=== PATIENT | male | born 1985 | race Caucasian/White ===

== ENCOUNTER 2022-06-30 21:26 | Observation (INO) | payer OTHER, SELFPAY ==
[2022-06-30] VITALS (49 sets, daily range): BP systolic 108–157; BP diastolic 49–109; PULSE 71–97; RESP 0–21; TEMP 37.7; O2SAT 96–100
--- NOTE | 2022-06-30 21:15 | RT.EKG_ITS ---
APPROVED REPORT Exam: Resting ECG Reason for Exam: Shortness of breath Patient Location: E HR:85 bpm ECG Measurements Heart Rate 85 AXIS MS 152 P 70 QRSd 82 QRS 53 QT 358 T 30 QTc 427 Conclusion Sinus rhythm...normal P axis, V-rate 60- 99 Ventricular premature complex...V complex w/ short R-R interval Narrow complex normal sinus rhythm at a rate of 85. Normal axis. Intervals within normal limits. N o ST segment abnormalities. T wave flattening in lead III. No acute injury pattern. No prior for c omparison.
--- NOTE | 2022-06-30 21:30 | ED.GENADUL_ITS ---
Discharge Plan Discharge Details Chief Complaint: Epigastric Pain/Over45 Primary Care Provider: Yancy,Local ED Provider: Forest Vann Home Meds and New Rx's Prescriptions: No Action lorazepam [Ativan] 0.5 mg Tablet 0.5 mg dextroamphetamine-amphetamine [Adderall] 20 mg Tablet 20 mg PO BID Rx Instructions: administer doses at least 4-6 hours apart amitriptyline 50 mg Tablet 50 mg PO QHS Medical Decision Making This is an uncomfortable appearing normothermic and not tachycardic 36-year-old male with chest and abdominal pain concerning for the possibility of dissection. His ECG is nonischemic however based on his symptoms we will obtain a single troponin and if this is negative will be reassured against ACS given the duration of his symptoms. I considered PE however he is PERC negative. No rash to his abdomen to suggest zoster. Splenic arterial aneurysm certainly on the differential given his left upper quadrant pain. No significant diarrhea to suggest diverticulitis. No cough nor fevers to suggest pneumonia. No dysuria nor frequency to suggest UTI. Given his epigastric tenderness pancreatitis is also a possibility. If his scan is reassuring against dissection will plan on attempting symptomatic treatment with famotidine and Mylanta. Given CT scan chest abdomen pelvis will defer chest x-ray. 10 PM CBC is significant for leukocytosis but no anemia and no thrombocytopenia. 10:23 PM Reassuring troponin. Reassuring creatinine. Very mild hyponatremia. Very mild hyperglycemia. No anion gap to suggest DKA. Normal LFTs. CT scan shows acute appendicitis for which I spoke with Dr. Cadena. We will keep patient n.p.o. I have ordered piperacillin/tazobactam. Dr. Cadena will place orders for hospitalization prior to appendectomy plan for tomorrow morning. We will update the patient. I ordered a preprocedural COVID swab. I ordered the patient hydromorphone at 0.5 mg. HEART SCORE Chest pain Diagnostic Protocol: - [History/Physical/Gestalt: Moderately Suspicious (+1)] - [EKG: Normal and/or unchanged from prior EKG (0)] - [AGE: less than 45 (0)] - [RISK FACTORS: No known risk factors (0)] - [TROPONIN: <= normal limit (0)] - TOTAL SCORE: 1 - Risk Factors: DM, current or recent smoker, HTN, HLD, family hx of CAD, obesity - INTERPRETATION: With a total score of 3 or less, risk of major cardiac event within six weeks 1.7%, likely lower with two negative troponins. [I explained to the patient that the risk of subsequent major cardiac event within 1 month is not 0, however risk predicted to be less than 2%. Patient verbalized understanding, accepts this risk and shared and the decision for discharge with PCP follow-up for further evaluation and management. They understand to return to the ED immediately with any worsening symptoms, new symptoms or other concerns.] Chronic conditions affecting the care of the patient: Elevated BMI History obtained from an outside historian: N/A External record review: N/A Diagnostic interpretations performed by me: [Per my independent interpretation EKG shows:] Narrow complex normal sinus rhythm at a rate of 85. Normal axis. Intervals within normal limits. No ST segment abnormalities. T wave flattening in lead III. No acute injury pattern. No prior for comparison. Medications: IV acetaminophen Social determinants of health affecting disposition: N/A Management discussed with: General surgery Treatment/interventions considered: N/A Response to therapies provided: Pain improved with acetaminophen HPI General Date/Time Provider Initiated Documentation: 06/30/22 21:27 . HPI Narrative: This is a previously healthy 36-year-old male arriving to the emergency department in the setting of left upper quadrant and left lower chest pain for the past approximately 8 hours. Patient reports that his symptoms began after blowing up an inflatable Easter toy. He attempted treatment at home with two 0.5 mg lorazepam tablets. These did not improve his symptoms. He vomited twice earlier this evening. He describes his left upper quadrant pain as a squeezing pain. It radiates superiorly into his chest and inferiorly to the remainder of his stomach. He has never had similar symptoms in the past. He has not had diarrhea. He occasionally smokes tobacco but denies routine ethanol and illicits. There is no family history of premature coronary artery disease. Patient does not have any fevers. He denies personal history of hyperlipidemia hypertension and diabetes. Related Data Home Medications Medication Instructions Recorded Confirmed amitriptyline 50 mg tablet 50 mg PO QHS 06/30/22 06/30/22 dextroamphetamine-amphetamine 20 20 mg PO BID 06/30/22 06/30/22 mg tablet (Adderall) lorazepam 0.5 mg tablet (Ativan) 0.5 mg 06/30/22 Allergies Allergy/AdvReac Type Severity Reaction Status Date / Time bee venom protein (honey bee) Allergy Mild Swelling/Ed Unverified 06/30/22 21:37 tracey PFSH All Active Problems (Updated 06/30/22 @ 22:51 by Leny Cadena DO) Insomnia (Acute) ADHD (Acute) Smoker (Acute) Acute appendicitis (Acute) Social History Smoking/Tobacco Use Status: Current-Occasional Smoking risk assessment performed?: Yes Alcohol Intake: never Drug use: Never Substance use type: does not use Exam Narrative Exam Narrative: General: Uncomfortable-appearing in no acute distress speaking in complete sentences. Head: Normocephalic, atraumatic. Eye: Pupils equal, round reactive to light. Extraocular eye movements intact. No conjunctival injection. No scleral icterus. Ear, nose, mouth, throat: Grossly normal inspection. Normal voice, handling secretions normally. Neck: Trachea midline. Cardiovascular: Well-perfused distal extremities. Respiratory: Nonlabored respiration. clear lungs bilaterally Gastrointestinal: Nondistended abdomen. Epigastric and left upper quadrant tenderness. No rebound. No guarding. Musculoskeletal: No edema. Moving all 4 extremities spontaneously. Skin: Normal for age and race, grossly normal temperature and turgor. No acute rash. Neurologic: Alert and appropriate, no apparent acute deficits. Psychiatric: Mood and manner are appropriate. Grooming and personal hygiene are appropriate.
--- NOTE | 2022-06-30 21:45 | DI.CT_ITS ---
Exam(s) CT CHEST/ABD/PEL W EXAM: CT CHEST/ABD/PEL W CLINICAL HISTORY: Chest and abdominal pain please assess for dissect. TECHNIQUE: Imaging Protocol: Axial CT angiography was performed with multi-slice acquisition and m ulti-planar and/or 3D reconstructions. CONTRAST MATERIAL: Intravenous: Omnipaque 350 contrast volume:125 mL Oral: No COMPARISON: No exams were available for comparison FINDINGS: CHEST: Tracheobronchial tree: Patent where visualized. Pulmonary parenchyma: No consolidation or dominant measurable mass. No architectural distortion. Pulmonary Arteries: No evidence of filling defect to suggest pulmonary emboli. Mediastinum and Angelita: No dominant adenopathy or fluid collection. The esophagus is unremarkable. Visualized thyroid: Unremarkable. Pleura: No effusion or pneumothorax. Heart: The heart is not dilated. No coronary artery calcifications are seen. No pericardial effusion. Aorta: Thoracic aorta non-dilated. There is no evidence of dissection. Soft Tissues: Unremarkable. Bones: Within normal limits for the patient's age. ABDOMEN AND PELVIS: Abdomen: Celiac axis/mesenteric arteries: No evidence of occlusion or significant stenosis. Renal Arteries: No evidence of occlusion or significant stenosis. There is a single renal artery per fusing each kidney. Aorta: No evidence of occlusion or significant stenosis. No aneurysm or dissection. Pelvis: Iliac Arteries: No evidence of occlusion or significant stenosis. Common Femoral Arteries: No evidence of occlusion or significant stenosis. ABDOMEN: Liver: Normal density. No measurable mass. Gallbladder and Biliary Tract: No radiodense calculus or dilation. Pancreas: Normal density, no abnormal calcifications or inflammatory process. Spleen: Normal. Adrenals: No masses seen. Kidneys: Normal size, contour and axis. No radiodense stones or obstructive uropathy. No masses seen. Bowel: No obstruction or bowel wall thickening. The appendix is distended measuring 1.8 cm in diamete r. There is Liseth appendiceal inflammation and mild wall thickening present. There does appear to be a tiny calcified appendicoliths.. No abscess or free air is present. Peritoneal Cavity: No ascites, collection or mesenteric inflammatory response. No free air. Lymph Nodes: Within normal limits. Bones: Within normal limits for the patient's age. Soft Tissues: Unremarkable. PELVIS: Bladder: Symmetric distention, no gross wall thickening. Reproductive Organs: Unremarkable as visualized. Lymph Nodes: Within normal limits. Bones: Within normal limits for the patient's age. IMPRESSION: 1. Normal CT Angiogram of the chest, abdomen and pelvis. 2. Findings of acute appendicitis without evidence of perforation or abscess. RADIATION DOSE DELIVERED: 1,416.97mGy.cm Total DLP DATA REPOSITORY: All CT scans at this facility are submitted to the National Radiology Data Registry (NRDR) Dose Index Registry (DIR) with the [employer] (A[employer]). RADIATION OPTIMIZATION: All CT scans at this facility use at least one of these dose optimization te chniques: automated exposure control; mA and/or kV adjustment per patient size (includes targeted exa ms where dose is matched to clinical indication); or iterative reconstruction.
[2022-06-30] MEDS: ACETAMINOPHEN 1,000 MG/100 ML BTL 400 MG IVPB (21:54)
[2022-06-30 21:55] LABS: Abs Immature Grans 0.18 10^3/uL (0.0-0.06); Absolute Eosinophil Count 0.06 10^3/uL (0.0-0.7); Basophils % 0.4; Eosinophils % 0.2; HCT 47.2 % (40.0-50.0); HGB 16.5 g/dL (13.5-17.5); Immature Grans % 0.6; Lymphocytes % 7.7; MCH 29.4 pg (27.0-33.0); MCV 84 fL (80-95); Monocytes % 3.2; Neutrophils % 87.9; Platelet Count 263 10^3/uL (130-400); RBC 5.62 10^6/uL (4.36-5.78); RDW 12.8 % (11.8-14.1); RDW-SD 39.2 fL
[2022-06-30] MEDS: Normal Saline 1,000 ML 1000 ML IV (21:55)
[2022-06-30 21:59] LABS: Absolute Basophil Count 0.12 10^3/uL (0.0-0.2); Absolute Lymphocyte Count 2.35 10^3/uL (1.2-3.4); Absolute Monocyte Count 0.98 10^3/uL (0.1-0.8); Absolute Neutrophil Count 26.81 10^3/uL (1.2-6.7)
[2022-06-30 22:01] LABS: Lactate 1.6 MMOL/l (0.9-1.7)
[2022-06-30] MEDS: Normal Saline - Diluent 50 ML VIAL IJ (22:06)
[2022-06-30] MEDS: Omnipaque 350 MG/ML 100 ML BTL IJ (22:06)
[2022-06-30 22:15] LABS: ALT 41 U/L (16-63); AST 18 U/L (15-37); Albumin 4.3 g/dL (3.4-5.0); Alkaline Phosphatase 125 U/L (46-116); Anion Gap 8.4 mmol/L (3-11); BUN 12 mg/dL (7-18); Bilirubin, Total 0.4 mg/dL (0.2-1.0); CO2 29.6 mmol/L (21.0-32.0); CREATININE 1.1 mg/dL (0.70-1.30); Calcium 9.8 mg/dL (8.5-10.1); Chloride 97 mmol/L (98-107); Estimated GFR 90.34 (mL/min/1.73m2); Glucose 112 mg/dL (74-106); Lipase 40 U/L (16-77); Potassium 4.2 mmol/L (3.5-5.1); Sodium 135 mmol/L (136-145); Total Protein 8.8 g/dL (6.4-8.2); Troponin I < 50 ng/L (<or=60)
--- NOTE | 2022-06-30 22:26 | DI.VRAD_ITS ---
Addendum created by Elena Carter MD on 06/30/2022 10:28:47 PM EDT: THIS REPORT CONTAINS FINDINGS THAT MAY BE CRITICAL TO PATIENT CARE. The pertinent findings were confirmed to have been read and understood by Forest Vann at 22:28 EDT on 06/30/2022. Initial report created on 06/30/2022 10:26:19 PM EDT: PROCEDURE INFORMATION: Exam: CTA Chest With Contrast CTA Abdomen and Pelvis With Contrast Exam date and time: 06/30/2022 21:56 Age: 36 years old Clinical indication: Other: Not specified; Patient HX: Chest and abdominal pain; Additional info: Please assess for dissection TECHNIQUE: Imaging protocol: Computed tomographic angiography of the chest with contrast. Computed tomographic angiography of the abdomen and pelvis with contrast. 3D rendering (Not supervised by radiologist): MIP and/or 3D reconstructed images were created by the technologist. COMPARISON: No relevant prior studies available. FINDINGS: VASCULATURE: Pulmonary arteries: No pulmonary emboli. Aorta: No aortic aneurysm. No aortic dissection. Celiac trunk and mesenteric arteries: No occlusion or significant stenosis. Renal arteries: No occlusion or significant stenosis. Right iliac arteries: No occlusion or significant stenosis. Left iliac arteries: No occlusion or significant stenosis. CHEST: Lungs: No airspace consolidation. Pleural spaces: No pneumothorax. No pleural effusion. Heart: No cardiomegaly. No pericardial effusion. ABDOMEN AND PELVIS: Liver: No hypervascular hepatic lesions. Gallbladder and bile ducts: No calcified stones. No ductal dilation. Pancreas: No mass. No ductal dilation. Spleen: No splenomegaly. Adrenal glands: No mass. Kidneys and ureters: No solid mass. No hydronephrosis. Stomach and bowel: No obstruction. No mucosal thickening. Appendix: The appendix is dilated to 19 mm in diameter and contains a small not highly calcified stone. Mild wall thickening and surrounding edema. Intraperitoneal space: No free air. No significant fluid collection. Urinary bladder: No mass. Reproductive: Unremarkable as visualized. Lymph nodes: No enlarged lymph nodes. Bones/joints: No acute fracture. Soft tissues: Unremarkable. IMPRESSION: Acute appendicitis. No perforation or abscess. No acute arterial pathology. Dictated and Authenticated by: Elena Carter MD. Ordering:ROSSY Garg MD
[2022-06-30] MEDS: PIPERACILLIN/TAZO 3.375 GM in Normal Saline 50 ML IVPB (22:45)
--- NOTE | 2022-06-30 22:47 | W.PM.PROGNOT ---
Date of Service Date of service: 06/30/22 Time of Service: 22:47 Assessment and Plan Assessment and plan (1) Acute appendicitis: Status: Acute Assessment and plan: Informed consent is obtained for the procedural (explained in simple layman's terms that? the pt and/or? family could understand) explaining risks vs benefits and alternatives to the procedure and consequences if we do not do the procedure. Risks include but are not limited to:bleeding,infections, pneumonia, blood clots/DVT/PE, anesthesia(aspiration, damage to teeth/airway/TX/CVA//prolonged mechanical ventilation/PTX/IV infections), damage to bowel, bladder,blood vessels, ureters. Damage to solid organs requiring removal.? Leakage from anastomosis requiring colostomy/? Wound infections requirng further surgery.? Scarring and disfigurement.? Subsequent bowel obstructions from scar tissue. Possible open procedure if minimaly invsive procedure is being attempted.?? Surgery in am (2) Smoker: Status: Acute (3) ADHD: Status: Acute (4) Insomnia: Status: Acute (5) Anxiety: Status: Chronic Subjective Subjective Interval history since last seen: acute appendicitis per ER. Pt is non toxic and comfortable. Cont abx and supportive care through night and plan surgery in am occ smoker anxiety bmi [address]: ABDOMEN AND PELVIS: Liver: No hypervascular hepatic lesions. Gallbladder and bile ducts: No calcified stones. No ductal dilation. Pancreas: No mass. No ductal dilation. Spleen: No splenomegaly. Adrenal glands: No mass. Kidneys and ureters: No solid mass. No hydronephrosis. Stomach and bowel: No obstruction. No mucosal thickening. Appendix: The appendix is dilated to 19 mm in diameter and contains a small not highly calcified stone. Mild wall thickening and surrounding edema. Intraperitoneal space: No free air. No significant fluid collection. Urinary bladder: No mass. Reproductive: Unremarkable as visualized. Lymph nodes: No enlarged lymph nodes. Bones/joints: No acute fracture. Soft tissues: Unremarkable. IMPRESSION: Acute appendicitis. No perforation or abscess. No acute arterial pathology. Objective Last Vital Signs Temp 37.7 C H 06/30/22 21:30 Pulse 72 06/30/22 21:30 Resp 16 06/30/22 21:30 BP 157/109 H 06/30/22 21:30 Pulse Ox 100 06/30/22 21:30 Laboratory Results - last 24 hr 06/30/22 06/30/22 06/30/22 21:43 21:43 21:43 WBC 30.50 H* RBC 5.62 Hgb 16.5 Hct 47.2 MCV 84 MCH 29.4 MCHC 35.0 RDW 12.8 Plt Count 263 MPV 10.0 Immature Gran % 0.6 Neutrophils % 87.9 Lymphocytes % 7.7 Monocytes % 3.2 Eosinophils % 0.2 Basophils % 0.4 Nucleated RBC % 0.0 Absolute Neutrophils 26.81 H Absolute Lymphocytes 2.35 Absolute Monocytes 0.98 H Absolute Eosinophils 0.06 Absolute Basophils 0.12 VBG Lactate 1.6 Sodium 135 L Potassium 4.2 Chloride 97 L Carbon Dioxide 29.6 Anion Gap 8.4 BUN 12 Creatinine 1.1 Est GFR (CKD-EPI 2020) 90.34 Glucose 112 H Calcium 9.8 Total Bilirubin 0.4 AST 18 ALT 41 Alkaline Phosphatase 125 H Troponin I < 50 Total Protein 8.8 H Albumin 4.3 Lipase 40 Time Spent with Patient Time Spent with Patient: 25-34 minutes Time was spent: obtaining and/or reviewing separately otained hiistory, ordering medications,tests, procedures, referring, communicating with other health director of managed care, indepentently interpreting results and care coordination
[2022-06-30 22:59] LABS: Source Nasal/Nares
[2022-06-30] MEDS: HYDROmorphone 2 MG/ML SYR 0.5 MG IVP (23:15)
[2022-06-30] MEDS: Enoxaparin 40 MG/0.4 ML SYR SC (23:15)
[2022-06-30 23:36] LABS: COVID-19 PCR Negative (Negative)
[2022-07-01] VITALS (8 sets, daily range): BP systolic 101–146; BP diastolic 71–88; PULSE 77–95; RESP 16–20; TEMP 36.7–37.4; O2SAT 92–100; BMI 33.5
[2022-07-01] MEDS: Normal Saline 1,000 ML 100 ML IV (00:03)
[2022-07-01] MEDS: MORPHine 2 MG/ML SYR IVP (03:43)
[2022-07-01] MEDS: ACETAMINOPHEN 1,000 MG/100 ML BTL 400 MG IVPB (04:17)
[2022-07-01] MEDS: PIPERACILLIN/TAZO 3.375 GM in Normal Saline 50 ML IVPB ×2 (04:25→10:02)
--- NOTE | 2022-07-01 08:35 | ANES.PREOP_ITS ---
General Info Date of Service Date Performed: 07/01/22 Height: 5 ft 10 in Weight: 105.914 kg Body Mass Index (BMI): 33.5 Surgical Procedure: Operation Date: 07/01/22 09:00 Proposed Procedure Side Surgeon p Appendectomy Laparoscopic Leny Cadena DO Meds Allergies and Home Medications Allergies Allergy/AdvReac Type Severity Reaction Status Date / Time bee venom protein (honey bee) Allergy Mild Swelling/Ed Unverified 06/30/22 21:37 tracey Home Medication Medication Instructions Recorded amitriptyline 50 mg tablet 50 mg PO QHS 06/30/22 dextroamphetamine-amphetamine 20 20 mg PO BID 06/30/22 mg tablet (Adderall) lorazepam 0.5 mg tablet (Ativan) 0.5 mg 06/30/22 Current Visit Medications: Current Medications Generic Name Dose Route Start Last Admin Trade Name Freq PRN Reason Stop Dose Admin Enoxaparin Sodium 40 mg 07/01/22 22:00 Enoxaparin 40 Mg/0.4 Ml Syr SC Q24H HEDY Sodium Chloride 500 mls @ 0 mls/hr 06/30/22 22:40 Saline 500ml Bag IV PRN PRN As Directed Sodium Chloride 1,000 mls @ 100 mls/hr 06/30/22 22:45 07/01/22 00:03 Saline 1000ml Bag IV 100 mls/hr INFUSION HEDY Administration Acetaminophen 1,000 mg in 100 mls @ 400 mls/hr 07/01/22 04:00 07/01/22 04:35 Ofirmev IVPB Infused Q6H HEDY Infusion Piperacillin Sod/Tazobactam 50 mls @ 100 mls/hr 07/01/22 04:00 07/01/22 05:00 Sod 3.375 gm/ Sodium Chloride IVPB Infused Q6H HEDY Infusion Protocol IV Miscellaneous Supplies 1 each 06/30/22 22:45 Iv Access IV DIRECTED HEDY Lidocaine 1 patch 07/01/22 22:00 Lidocaine 5% Patch TP 2200 HEDY Miscellaneous 1 each 07/01/22 10:00 Patch Removal TP 1000 HEDY Morphine Sulfate 2 mg 06/30/22 22:40 07/01/22 03:43 Morphine 2 Mg/Ml Syr IVP 2 mg Q1H PRN PRN Administration Ondansetron HCl 4 mg 06/30/22 22:40 Ondansetron 4 Mg/2 Ml Vial IVP Q4H PRN PRN Sodium Chloride 0 ml 06/30/22 22:40 Normal Saline Flush 10 Ml Syr IVP PRN PRN PFSH Active Problems Active Problems: Problem Status Onset Code Anxiety F41.9 Insomnia G47.00 ADHD F90.9 Smoker F17.200 Acute appendicitis K35.80 Tobacco Smoking/Tobacco Use Status: Current-Occasional Alcohol Alcohol Intake: never Substance Use Substance use: Never Substance use type: does not use Vital Signs and Lab Results Vital Signs Most Recent Vital Signs in EMR: Most Recent Vital Signs Temp Pulse Resp BP Pulse Ox 36.8 C 77 17 129/78 100 07/01/22 07:43 07/01/22 07:43 07/01/22 07:43 07/01/22 07:43 07/01/22 07:43 Lab Results 06/30/22 21:43 06/30/22 21:43 Blood Type / Crossmatch: No Data to Display Complete Blood Count: White Blood Count 30.50 10^3/uL (4.4-10.8) H* 06/30/22 21:43 Red Blood Count 5.62 10^6/uL (4.36-5.78) 06/30/22 21:43 Hemoglobin 16.5 g/dL (13.5-17.5) 06/30/22 21:43 Hematocrit 47.2 % (40.0-50.0) 06/30/22 21:43 Platelet Count 263 10^3/uL (130-400) 06/30/22 21:43 Venous Blood Lactate 1.6 MMOL/l (0.9-1.7) 06/30/22 21:43 Complete Metabolic Panel: Sodium 135 mmol/L (136-145) L 06/30/22 21:43 Potassium 4.2 mmol/L (3.5-5.1) 06/30/22 21:43 Chloride 97 mmol/L (98-107) L 06/30/22 21:43 Carbon Dioxide 29.6 mmol/L (21.0-32.0) 06/30/22 21:43 BUN 12 mg/dL (7-18) 06/30/22 21:43 Creatinine 1.1 mg/dL (0.70-1.30) 06/30/22 21:43 Est GFR (CKD-EPI 2020) 90.34 (mL/min/1.73m2) 06/30/22 21:43 Calcium 9.8 mg/dL (8.5-10.1) 06/30/22 21:43 Albumin 4.3 g/dL (3.4-5.0) 06/30/22 21:43 Glucose 112 mg/dL (74-106) H 06/30/22 21:43 Liver Function Panel: Alanine Aminotransferase (ALT/SGPT) 41 U/L (16-63) 06/30/22 21: 43 Aspartate Amino Transf (AST/SGOT) 18 U/L (15-37) 06/30/22 21:43 Coagulation Panel: No Data to Display Cardiac Panel: Troponin I < 50 ng/L (<or=60) 06/30/22 Arterial Blood Gas: No Data to Display Venous Blood Gas: No Data to Display Pancreas Panel: Lipase 40 U/L (16-77) 06/30/22 21:43 Thyroid Panel: No Data to Display Infectious Disease: Coronavirus (COVID-19)(PCR) Negative (Negative) 06/30/22 22:51 Coronavirus 2019 Source Nasal/Nares 06/30/22 22:51 Blood Cultures: No Data to Display Toxicology Panel: No Data to Display Imaging and Studies Imaging and Studies Study information below may be from another EMR and interpreted by another provider. Please see original notes in EMR for more complete details. EKG Summary: EKG PATIENT NAME: Gonzales Sanchez #: [id number] ORDERING PROVIDER: Forest Vann M.D. PRIMARY CARE PROVIDER:TWILA LOCAL DATE/TIME OF SERVICE: 06/30/222141 : 1985PERFORMING LOCATION: ER APPROVED REPORT Exam: Resting ECG Reason for Exam: Shortness of breath Patient Location: E HR:85 bpm ECG Measurements Heart Rate [address] 152 P 70 QRSd 82 QRS 53 QT 358 T30 QTc 427 Conclusion Sinus rhythm...normal P axis, V-rate 60- 99 Ventricular premature complex...V complex w/ short R-R interval Narrow complex normal sinus rhythm at a rate of 85. Normal axis. Intervals within normal limits. No ST segment abnormalities. T wave flattening in lead III. No acute injury pattern. No prior for comparison Anesthesia Assessment and Plan Anesthesia History Personal History: No History of Anesthesia Complications Family History: No Family History of Anesthesia Complications Exercise Tolerance Exercise Tolerance: Metabolic Equivalents>4 Pertinent Negatives Pertinent Negatives: No Symptoms of GERD, No Major Cardiovascular Symptoms or Complaints and No History of CVA/TIA Cardiac & Pulmonary Exam Cardiac Exam: Normal S1/S2 Heart Sounds Pulmonary Exam: Clear Bilateral Breath Sounds and Wheezing Present (LLL, cleared with cough) Implantable Cardiac Device Does patient have a Pacemaker or an ICD?: No Airway Exam Known Difficult Airway: No Mallampati Class: 3 Mouth Opening: Normal (> 3cm) Thyromental Distance: Greater than 3 cm Neck Range of Motion: Full ROM Neck Circumference: Normal Teeth Condition: Normal Dentition ASA Classification ASA Score: ASA 2 Emergency Case?: No NPO Status NPO Status: NPO Clears >2 hours, Solids >8 hours Anesthesia Plan Resuscitation Status: Full Code Anesthesia Technique: General Anesthesia Airway Planned: Endotracheal Tube Monitors Used: Standard Monitors
--- NOTE | 2022-07-01 08:40 | HPE_ITS ---
Date of service: 07/01/22 Time of Service: 08:40 Assessment and Plan Assessment and plan (1) Acute appendicitis: Status: Acute Assessment and plan: - I discussed with the patient what he could expect during her surgery, recovery time, and risks. :Informed consent is obtained for the procedural (explained in simple layman's terms that the pt and/or family could understand) explaining risks vs benefits and alternatives to the procedure and consequences if we do not do the procedure. Risks include but are not limited to: bleeding, infections, pneumonia, blood clots/DVT/PE, anesthesia (aspiration, damage to teeth/airway/SD/CVA//prolonged mechanical ventilation/PTX/IV infections), damage to bowel, bladder, blood vessels. Leakage from anastomosis requiring colostomy/ Wound infections requiring further surgery.?Scarring and disfigurement. Subsequent bowel obstructions from scar tissue.? Chronic pain or numbness from the incision, or hernia. Possible open procedure if minimally invasive procedure is being attempted. -Patient has been receiving Zosyn since his admission Surgery this a.m. Hopefully can be discharged home tonight (2) Anxiety: Status: Chronic (3) Insomnia: Status: Acute (4) ADHD: Status: Acute (5) Smoker: Status: Acute History of Present Illness Narrative: Patient feels better today. He has no nausea or vomiting. He has some mild right lower quadrant pain. The nausea and vomiting started yesterday. He was also having chills. He denied any trauma. No one else at home is ill he has not done any traveling. He has never had anything like this before. He was having severe pain in the right lower quadrant and went into the emergency room. He did get a CT scan which showed acute appendicitis. Past surgical history is significant for T&A and a right hernia repair as a child. He does not know if he had problems with anesthesia Past medical history: He denies ever having a heart attack or stroke. He denies being diabetic. He denies asthma or sleep apnea. He does occasionally smoke c igarettes. Allergies and medications as noted in [employer] Review of Systems All systems reviewed & are unremarkable except as noted in HPI and below PFSH All Active Problems Anxiety (Chronic) Insomnia (Acute) ADHD (Acute) Smoker (Acute) Acute appendicitis (Acute) Social History Smoking/Tobacco Use Status: Current-Occasional Smoking risk assessment performed?: Yes Alcohol Intake: never Drug use: Never Substance use type: does not use Meds Allergies and Home Medications Allergies Allergy/AdvReac Type Severity Reaction Status Date / Time bee venom protein (honey bee) Allergy Mild Swelling/Ed Unverified 06/30/22 21:37 tracey Home Medications Medication Instructions Recorded Confirmed Type amitriptyline 50 mg tablet 50 mg PO QHS 06/30/22 06/30/22 History dextroamphetamine-amphetamine 20 20 mg PO BID 06/30/22 06/30/22 History mg tablet (Adderall) lorazepam 0.5 mg tablet (Ativan) 0.5 mg 06/30/22 History Exam Const Other: PHYSICAL EXAM GENERAL APPEARANCE: Alert, healthy appearance, oriented, x 3,? in no acute distress HYDRATION: Well hydrated HEAD, EYES, EARS, NECK, THROAT: Head is normocephalic, pupils equal, round, r eactive to light and accommodation, ocular movement intact, sclera clear and no jaundice. ?Dentition intact. No sore throat.? No jaw pain. No thrush LUNGS: normal respiration/normal chest excursion. ?Clear to auscultation bilaterally. ?No wheeze. ?HEART: Regular rate and rhythm. no murmurs ABDOMEN: Mild pain at McBurney's point. Decreased bowel sounds.? No umbilical hernias.? Results Labs 06/30/22 21:43 06/30/22 21:43 Labs: Laboratory Results - last 24 hr 06/30/22 06/30/22 06/30/22 21:43 21:43 21:43 WBC 30.50 H* RBC 5.62 Hgb 16.5 Hct 47.2 MCV 84 MCH 29.4 MCHC 35.0 RDW 12.8 Plt Count 263 MPV 10.0 Immature Gran % 0.6 Neutrophils % 87.9 Lymphocytes % 7.7 Monocytes % 3.2 Eosinophils % 0.2 Basophils % 0.4 Nucleated RBC % 0.0 Absolute Neutrophils 26.81 H Absolute Lymphocytes 2.35 Absolute Monocytes 0.98 H Absolute Eosinophils 0.06 Absolute Basophils 0.12 VBG Lactate 1.6 Sodium 135 L Potassium 4.2 Chloride 97 L Carbon Dioxide 29.6 Anion Gap 8.4 BUN 12 Creatinine 1.1 Est GFR (CKD-EPI 2020) 90.34 Glucose 112 H Calcium 9.8 Total Bilirubin 0.4 AST 18 ALT 41 Alkaline Phosphatase 125 H Troponin I < 50 Total Protein 8.8 H Albumin 4.3 Lipase 40 COVID-19 Source SARS-CoV-2 (PCR) 06/30/22 22:51 WBC RBC Hgb Hct MCV MCH MCHC RDW Plt Count MPV Immature Gran % Neutrophils % Lymphocytes % Monocytes % Eosinophils % Basophils % Nucleated RBC % Absolute Neutrophils Absolute Lymphocytes Absolute Monocytes Absolute Eosinophils Absolute Basophils VBG Lactate Sodium Potassium Chloride Carbon Dioxide Anion Gap BUN Creatinine Est GFR (CKD-EPI 2020) Glucose Calcium Total Bilirubin AST ALT Alkaline Phosphatase Troponin I Total Protein Albumin Lipase COVID-19 Source Nasal/Nares SARS-CoV-2 (PCR) Negative Last Vital Signs Temp 36.8 C 07/01/22 07:43 Pulse 77 07/01/22 07:43 Resp 17 07/01/22 07:43 BP 129/78 07/01/22 07:43 Pulse Ox 100 07/01/22 07:43 Time Spent Time spent with Patient: 40-54 minutes Time was spent: preparing to see the patient(eg.review tests), obtaining and/or reviewing separately otained hiistory, ordering medications,tests, procedures, referring, communicating with other health customer care coordinator, indepentently interpreting results, counseling the patient and care coordination
[2022-07-01] MEDS: Lactated Ringers 1,000 ML 30 ML IV ×2 (09:10→11:00)
[2022-07-01] MEDS: Bupivacaine 0.25% Pres-Free W/EPI 30 ML VIAL (10:01)
--- NOTE | 2022-07-01 10:15 | APP_PTH ---
PATIENT: Gonzales Sanchez LOC: U#:[id number] AGE/SX: 36/M ROOM: [id number] RE06/30/[address]: Leny Cadena : 1985 BED: A DIS: 07/01/2022 SPEC #: [id number] RECD: 07/02/22 12:30 STATUS: CRYSTAL REQ #: [id number] GEE: 07/01/22 10:[address]: Leny Cadena DEPT: Surgical Specimen RECD BY: Karla Zamora ENTERED: 07/02/22 12:31 SP TYPE: Appendix OTHR DR: No Local Tissues: 1 - APPENDIX NOT INCIDENTAL Procedures: GROSS AND MICRO LEVEL 3 Comments: [id number]
--- NOTE | 2022-07-01 10:58 | ROE_ITS ---
Date of service: 07/01/22 Time of Service: 10:58 Operative Note Operative Note DATE OF PROCEDURE: 07/01/22 PRE-OP DIAGNOSIS: acute appendicitis POST-OP DIAGNOSIS: same PROCEDURE: Laparoscopic appendectomy SURGEON: Ksenia Gómez MESSAGING ARCHITECT: Libby Minor ANESTHESIA TYPE: Local By Surgeon and General LMA/ETT Refer to Anesthesia Record ESTIMATED BLOOD LOSS: 50 PATHOLOGY: other COMPLICATIONS: None Patient was transported to: PACU Patient's condition: stable Procedure Description: INDICATIONS: The patient has signs and symptoms compatible with acute appendicitis and is brought to the OR for laparoscopic appendectomy, possible open procedure. Informed consent is obtained for the procedural (explained in simple layman's terms that the pt and/or family could understand) explaining risks vs benefits and alternatives to the procedure and consequences if we do not do the procedure. Risks include but are not limited to:bleeding,infections, pneumonia, blood clots/DVT/PE, anesthesia(aspiration, damage to teeth/airway/MD/CVA//prolonged mechanical ventilation/PTX/IV infections), damage to bowel, bladder,blood vessels, ureters. Damage to solid organs requiring removal. Infertility. Leakage from anastomosis requiring colostomy. Wound infections requirng further surgery. Scarring and disfigurement. Subsequent bowel obstructions from scar tissue. Possible open procedure if minimaly invsive procedure is being attempted. Abscess and stump appendicitis as well as others. DESCRIPTION OF PROCEDURE: The patient was brought to the operating room suite and placed in supine position. Anesthesia was administered per the Department of Anesthesia. A Anne catheter and OG tube are placed. The patient was prepped and draped in the usual sterile fashion using ChloraPrep scrub solution. Pause for the cause was done. 30 mL of 1% buffered was used for local anesthetization. A stab incision was made in the umbilicus and the Veress was inserted. Drop test was positive and insufflation was begun. When 15 mm of pressure was noted on the monitor, the Veress was removed, a #5 port inserted. Camera inserted through the port shows no damage to underlying structures. Bowel, liver and stomach that are visualized are normal in appearance. Pelvic organs are not visualized. The appendix is inflamed, erythematous,enlarged, & distened, but does not appear to have been ruptured. There is no purulent drainage in the pelvis. It is not adhered to any adjacent structures. A 12 mm port was then placed in the suprapubic position under direct visualization following creation of a local field block as well as a second 5 mm port in the LLQ. The appendix is elevated and a rent dissected into the mesentery. The base of the appendix is healthy and will hold cynthia. A Endo-CRISTIANO stapler is placed across the base of the appendix and fired. A vascular stapler is then used to go across the appendiceal artery. The remainder of a mesentery is then taken down with the LigaSure. There is a another branch of the artery that is encountered. 2 clips were placed across this. There is no bleeding or enteric leakage noted. The appendix is placed in a bag and brought out. There is no bleeding or enteric leakage from the staple lines. The pt does not require a drain. The abdomen was copiously irrigated with a liter of saline. All saline is evacuated. The scope and ports are removed. Pneumoperitoneum is evacuated. The fascia under the 12 mm port is closed with 0 Vicryl. There was no bleeding from the port sites as when they removed and the pneumoperitoneum evacuated. The wounds were copiously irrigated and closed in 2 layers with 4-0 Monocryl.? Skin glue is used.? Sterile dressings are applied. The patient tolerated the procedure without complication, transferred to the recovery room in stable condition. KSENIA GÓMEZ, DO ?
--- NOTE | 2022-07-01 11:18 | W.ANESPOSTOP ---
Postoperative Evaluation Date, Time and Location Date Performed: 07/01/22 Time Performed: 11:18 Patient Location: PACU Vital Signs Most Recent Imported Vital Signs: Most Recent Vital Signs Temp Pulse Resp BP Pulse Ox 36.7 C 81 16 101/73 100 07/01/22 10:57 07/01/22 11:07 07/01/22 11:07 07/01/22 11:07 07/01/22 11:07 Pain Score Most Recent Pain Score: Most Recent Pain Score Pain Level [Lower right 4 07/01/22 07:16 quadrant, appendicitis reported by might RN] Pain Level 2 07/01/22 11:07 Assessment Mental Status: Awake (Alert & Oriented to Patient Baseline) Airway and Respiratory Function: Patent airway with normal (patient baseline) respiratory exam Cardiovascular Function: Hemodynamically Stable Hydration Status: Adequately Hydrated Nausea & Vomiting: No Nausea or Vomiting Pain: Pain is tolerable per patient (reporting 5/10, states is currently tolerable and doesnt want medication at this time. Is inpatient. ) Peripheral Nerve Block: Patient did not receive a nerve block
--- NOTE | 2022-07-01 11:27 | W.PM.PROGNOT ---
Date of Service Date of service: 07/01/22 Time of Service: 11:27 Assessment and Plan Assessment and plan (1) S/P laparoscopic appendectomy: Status: Acute Assessment and plan: - Patient did receive 3 doses of Zosyn Repeat labs in a.m. We will keep patient till a.m. He did have a 30,000 white count Routine postop cares (2) Anxiety: Status: Chronic (3) Insomnia: Status: Acute (4) ADHD: Status: Acute (5) Smoker: Status: Acute (6) Leukocytosis (leucocytosis): Status: Acute Subjective Subjective Interval history since last seen: The patient is doing well post-op. Their pain is well controlled. They are having no nausea or vomiting. The pt is not having any chest pain or SOB, productive cough; no calf pain or swelling. The pt is making good urine. The pt pain is adequately controlled. The case was discussed with nursing and patient?s progress reviewed. All of the pt's home medications were addressed and adjusted accordingly for their oral intact status. HEENT: no jaundice. no eye pain/drainage/redness/swelling. Mild sore throat Cardio- NSR no chest pain, BP stable. Pulm: no sob or productive cough. no hemoptysis Incision- clean/dry. Dressing intact no excessive bleeding or drainage I discussed with the patient about the findings in surgery and the pt's progress. We reviewed expectations for progress in the hospital; what the pt could expect for recovery time and length of stay. We discussed the importance of walking and pulmonary toilet to avoid blood clots and pneumonia. Continue current plans for pulmonary toilet, GI and DVT prophylaxis. We shall continue the current plan for pain management as it is at an appropriate level, and working well for the pt. Appropriate measures will be taken for constipation prevention, and this was also reviewed with the pt. The wound care plan was reviewed with nursing as well. see orders Objective Last Vital Signs Temp 36.7 C 07/01/22 11:12 Pulse 80 07/01/22 11:12 Resp 17 07/01/22 11:12 BP 113/71 07/01/22 11:12 Pulse Ox 98 07/01/22 11:12 Laboratory Results - last 24 hr 06/30/22 06/30/22 06/30/22 21:43 21:43 21:43 WBC 30.50 H* RBC 5.62 Hgb 16.5 Hct 47.2 MCV 84 MCH 29.4 MCHC 35.0 RDW 12.8 Plt Count 263 MPV 10.0 Immature Gran % 0.6 Neutrophils % 87.9 Lymphocytes % 7.7 Monocytes % 3.2 Eosinophils % 0.2 Basophils % 0.4 Nucleated RBC % 0.0 Absolute Neutrophils 26.81 H Absolute Lymphocytes 2.35 Absolute Monocytes 0.98 H Absolute Eosinophils 0.06 Absolute Basophils 0.12 VBG Lactate 1.6 Sodium 135 L Potassium 4.2 Chloride 97 L Carbon Dioxide 29.6 Anion Gap 8.4 BUN 12 Creatinine 1.1 Est GFR (CKD-EPI 2020) 90.34 Glucose 112 H Calcium 9.8 Total Bilirubin 0.4 AST 18 ALT 41 Alkaline Phosphatase 125 H Troponin I < 50 Total Protein 8.8 H Albumin 4.3 Lipase 40 COVID-19 Source SARS-CoV-2 (PCR) 06/30/22 22:51 WBC RBC Hgb Hct MCV MCH MCHC RDW Plt Count MPV Immature Gran % Neutrophils % Lymphocytes % Monocytes % Eosinophils % Basophils % Nucleated RBC % Absolute Neutrophils Absolute Lymphocytes Absolute Monocytes Absolute Eosinophils Absolute Basophils VBG Lactate Sodium Potassium Chloride Carbon Dioxide Anion Gap BUN Creatinine Est GFR (CKD-EPI 2020) Glucose Calcium Total Bilirubin AST ALT Alkaline Phosphatase Troponin I Total Protein Albumin Lipase COVID-19 Source Nasal/Nares SARS-CoV-2 (PCR) Negative Time Spent with Patient Time Spent with Patient: <25 minutes Time was spent: ordering medications,tests, procedures, counseling the patient and care coordination
[2022-07-01] MEDS: Methocarbamol 750 MG TAB PO (14:21)
[2022-07-01 14:55] LABS: HCT 40.5 % (40.0-50.0); HGB 14.1 g/dL (13.5-17.5); MCH 29.3 pg (27.0-33.0); MCHC 34.8 % (32.0-36.0); MCV 84 fL (80-95); Platelet Count 228 10^3/uL (130-400); RBC 4.82 10^6/uL (4.36-5.78); RDW 12.9 % (11.8-14.1); RDW-SD 39.6 fL; WBC 22.46 10^3/uL (4.4-10.8)
--- NOTE | 2022-07-01 15:37 | INITIAL_ITS ---
- If Service Date Differs Date of service: 07/01/22 Time of Service: 15:37 Care Management Initial Assess REASON FOR HOSPITALIZATION:: Acute Appendicitis PAST MEDICAL HISTORY/PAST SURGICAL HISTORY:: All Active Problems . Anxiety (Chronic). Insomnia (Acute). ADHD (Acute). Smoker (Acute). Acute appendicitis (Acute) PREVIOUS FUNCTIONAL STATUS/SOCIAL/FAMILY SUPPORTS:: Gonzales lives in [place] with his significant other Mari and her daughter. He works for the [employer] and works from home. Gonzales drives and is active and independent at baseline. CURRENT FUNCTIONAL STATUS:: Gonzales is lying in bed when CM met with him. He is awake and easily engages in conversation. Per pt, he is eager to discharge home when medically ready. He just had labs drawn and will discuss medical readiness with the surgeon. ADVANCE DIRECTIVES:: None Has patient been provided with info about the portal/API?: Yes Did the patient sign up for the portal?: No CODE STATUS:: Full Code INSURANCE COVERAGE / FINANCIAL ISSUES:: [employer] CURRENT HOME/COMMUNITY SERVICES/EQUIPMENT:: None PRIMARY CARE PHYSICIAN:: No Local POTENTIAL DISCHARGE NEEDS:: Surgical follow up, Needs PCP PATIENT/FAMILY EDUCATION NEEDS:: Review discharge instructions, limitations, medications and plan to follow up with community providers. Discuss ask me three. TRANSPORTATION:: Via private vehicle with family PLAN:: Anticipate, Gonzales will discharge home via private vehicle with family when medically ready, per Surgical. He will need an outpatient surgical F/U appt and if a hospital f/u with primary care is recommended it should be made using the [facility] schedule. No new [facility] services are indicated at this time. CM will continue to support patient and his discharge plan of care.
--- NOTE | 2022-07-01 15:56 | W.PM.DS.N ---
Date of service: 07/01/22 Time of Service: 16:30 DS: Diagnosis Discharge Diagnosis (1) S/P laparoscopic appendectomy: Status: Acute (2) Anxiety: Status: Chronic (3) Insomnia: Status: Acute (4) ADHD: Status: Acute (5) Smoker: Status: Acute (6) Leukocytosis (leucocytosis): Status: Acute Discharge Plan Disposition Patient Disposition: Home Condition: Good Discharge Details Reason For Visit: Acute Appendicitis Admit Date/Time: 06/30/22 22:40 Admit Provider: Leny Cadena Attending Provider: Leny Cadena [facility] Course: Patient came to the ER complaining of abdominal pain and nausea and vomiting. He had 30,[address] scan was obtained which was compatible with acute appendicitis. He underwent laparoscopic appendectomy. Please see op report for details of the procedure. Postoperatively he was up walking around. He was tolerating regular diet. His pain was controlled. He does desire to go home. He still has a 20,000 and white count. There is no signs of abscess but because of the high white count I am going to send him home on 3 days of Augmentin. Patient was given instructions in wound care, activity, and warning signs, and pain management plan. He will follow-up in clinic with me on , my office will contact him tomorrow to arrange appointment. Patient verbalized understood of instructions, and discharged in stable and satisfactory condition Home Meds and New Rx's Prescriptions: New amoxicillin-pot clavulanate 875-125 mg tablet 1 tab PO BID 3 Days Qty: 6 0RF oxycodone 5 mg tablet 5 mg PO Q6H PRNQty: 7 0RF Continued lorazepam [Ativan] 0.5 mg Tablet 0.5 mg dextroamphetamine-amphetamine [Adderall] 20 mg Tablet 20 mg PO BID Rx Instructions: administer doses at least 4-6 hours apart amitriptyline 50 mg Tablet 50 mg PO QHS Discharge Instructions Additional Instructions: ? ACTIVITY: The day of surgery should be spent resting. However, you can be up for short periods of time, I.E., going to the bathroom or kitchen. Avoid lifting or straining. On the day following surgery, you can be up and about as desired. ? LIFTING: Restrict your lifting to no more than five (5) pounds for the first week following surgery. For the second week after surgery, don?t lift more than ten pounds.? We will decide when you are done with restrictions and when you can return to work, at your follow-up appointment.? No sexual activity for two weeks.? ? INCISION CARE: You will notice purple skin glue closing the incision.? Do not peel this off- it will wear off on its own.? After 24 hours you may shower. ? SIGNS OF INFECTION: It is not unusual to have some black and blue discoloration of the skin around the incision. ?It will slowly disappear. If you have any increased redness, drainage, fever (above 100 degrees), please contact your doctor for an examination. ? DISCOMFORT: You may expect to have some mild discomfort at the incision sight. If severe pain develops you should contact your doctor for further instructions. ? DRIVING: NO driving for three (3) days after surgery, or if you are still taking narcotic pain medication.? ? MEDICATIONS: Alternate Tylenol 1000mg by mouth every 8 hours and Ibuprofen 600mg every 6 hours. ?Make sure you take ibuprofen with food and not on an empty stomach. ?Take the Tylenol and ibuprofen continuously for the first 72hrs- not just when you have pain.? Use the oxycodone for breakthrough pain/pain that is greater than a 7.? Use ICE!?? Twenty minutes on, and then off, continuously for the first 72hours. If you are taking narcotic pain medication, follow the instructions on the label and do not drive. Pain medications can make you very constipated. Make sure you are moving your bowels daily. If not, take Miralax, milk of magnesia or magnesium citrate.?? Anesthesia makes you very constipated.? Take a dose of milk of magnesia or MiraLAX the morning after surgery. ? REPORT: Unusual swelling, severe pain, unresolved nausea, signs of infection, or difficulty in urination to your surgeon. -Since it is Saturday we cannot make a follow-up appointment for you. My office will call you in the morning to set up an appointment. Follow up in clinic with Dr. Cadena in 2 weeks.? [phone] -regular diet -no straining to move bowels- see above. -Please eat yogurt daily while on antibiotics to avoid diarrhea -It is ok to shower. No bathe, soaking, swimming or hot tubs for 2 weeks. -Keep wound clean and dry. Wash incision with soap and water daily. Pat dry, don't rub. -You may find that your appetite is smaller. Eat 3-6 small meals throughout the day. It is important to drink lots of water after surgery, 6-10 glasses a day. -If you were given an incentive spirometry (breathing molding sander?), continue to do this 10x/hour while awake. -We do want you up walking, at least 5-6 times per day. This is very important to prevent pneumonia and blood clots. You can climb stairs, take them slowly. -You may find that you are very tired after surgery- this is normal. -please do not smoke for a minimum of 72 hours after surgery. Activity:: See above Equipment/Supplies:: No Equipment Needed Diet:: As Tolerated DS: Summary Time Spent with Patient providing and/or coordinating discharge services: Less than 30 minutes Status at Discharge Functional status at discharge: independent ambulation Overall status at discharge: patient is progressing back to baseline Mental Status: mental status grossly normal Speech and Movement: speech and movement normal Mood: congruent mood Affect: normal affect Exam Psych Mental Status: mental status grossly normal Speech and Movement: speech and movement normal Mood: congruent mood Affect: normal affect DS: Data Vitals/I&O Vitals and I&O: Vital Signs Temperature 36.7 C 07/01/22 11:12 Temperature Source Tympanic 07/01/22 07:43 Pulse 77 07/01/22 11:30 Pulse Rhythm Regular 07/01/22 07:15 Pulse 85 06/30/22 21:40 Respiratory Rate 17 07/01/22 11:12 Respiratory Effort Normal 07/01/22 07:15 Respiratory Depth Normal 07/01/22 07:15 Respiratory Pattern Normal 07/01/22 07:15 Blood Pressure 114/74 07/01/22 11:30 Blood Pressure Mean 63 06/30/22 23:31 Blood Pressure Position Sitting 06/30/22 21:30 Pulse Oximetry 99 07/01/22 11:30 Respiratory End-tidal CO2 31 07/01/22 11:12 Oxygen Delivery Method Room Air 07/01/22 11:30 Oxygen Flow Rate 0 07/01/22 11:30 Pain Level 4 07/01/22 11:12 Intake & Output 06/30/22 07/01/22 07/01/22 23:59 11:59 23:59 Intake Total 1150 / 1150 1330 / 2580 1250 / 2580 Output Total 1600 / 2950 1350 / 2950 Balance 1150 / 1150 -270 / -370 -100 / -370 Weight 104.326 kg 105.914 kg Intake: IV 1150 / 1150 1300 / 2300 1000 / 2300 Oral 30 / 280 250 / 280 Output: Urine 1550 / 2900 1350 / 2900 Emesis 0 / 0 Estimated Blood Loss 50 / 50 Other: Urine Color Yellow Yellow Urine Appearance Clear Clear Urine Odor Normal Emesis Description None Voiding Methods Toilet Toilet Urinal Data Completed and Pending Labs on day of discharge: Labs from last 24 hours 07/01/22 06/30/22 06/30/22 14:42 22:51 21:43 WBC 22.46 H 30.50 H* RBC 4.82 5.62 Hgb 14.1 D 16.5 Hct 40.5 47.2 MCV 84 84 MCH 29.3 29.4 MCHC 34.8 35.0 RDW 12.9 12.8 Plt Count 228 263 MPV 10.0 10.0 Immature Gran % 0.6 Neutrophils % 87.9 Lymphocytes % 7.7 Monocytes % 3.2 Eosinophils % 0.2 Basophils % 0.4 Nucleated RBC % 0.0 Absolute Neutrophils 26.81 H Absolute Lymphocytes 2.35 Absolute Monocytes 0.98 H Absolute Eosinophils 0.06 Absolute Basophils 0.12 VBG Lactate Sodium Potassium Chloride Carbon Dioxide Anion Gap BUN Creatinine Est GFR (CKD-EPI 2020) Glucose Calcium Total Bilirubin AST ALT Alkaline Phosphatase Troponin I Total Protein Albumin Lipase COVID-19 Source Nasal/Nares SARS-CoV-2 (PCR) Negative 06/30/22 06/30/22 21:43 21:43 WBC RBC Hgb Hct MCV MCH MCHC RDW Plt Count MPV Immature Gran % Neutrophils % Lymphocytes % Monocytes % Eosinophils % Basophils % Nucleated RBC % Absolute Neutrophils Absolute Lymphocytes Absolute Monocytes Absolute Eosinophils Absolute Basophils VBG Lactate 1.6 Sodium 135 L Potassium 4.2 Chloride 97 L Carbon Dioxide 29.6 Anion Gap 8.4 BUN 12 Creatinine 1.1 Est GFR (CKD-EPI 2020) 90.34 Glucose 112 H Calcium 9.8 Total Bilirubin 0.4 AST 18 ALT 41 Alkaline Phosphatase 125 H Troponin I < 50 Total Protein 8.8 H Albumin 4.3 Lipase 40 COVID-19 Source SARS-CoV-2 (PCR) PFSH All Active Problems (Updated 07/01/22 @ 11:28 by Leny Cadena DO) Leukocytosis (leucocytosis) (Acute) S/P laparoscopic appendectomy (Acute) Anxiety (Chronic) Insomnia (Acute) ADHD (Acute) Smoker (Acute) Acute appendicitis (Acute) Social History Smoking/Tobacco Use Status: Current-Occasional Smoking risk assessment performed?: Yes Alcohol Intake: never Drug use: Never Substance use type: does not use Time Spent with Patient Time Spent with Patient: <45 minutes Time was spent: referring, communicating with other health customer care associate, counseling the patient and care coordination
[2022-07-01] MEDS: Acetaminophen 500 MG TAB 1000 MG PO (16:33)
[2022-07-01] MEDS: Ketorolac 15 MG/ML VIAL IVP (16:33)
[2022-07-01] MEDS: Normal Saline Flush 10 ML SYR IVP (16:33)
--- NOTE | 2022-07-01 16:37 | PDOC.CMDIS ---
- If Service Date Differs Date of service: 07/01/22 Time of Service: 16:38 LACE Index Scoring Tool - Questions: Length of Stay (in days): 1 Acuity (Admit via E.D.?): Yes E.D. Visits: 1 - Answers: Total Score: 5 Risk of Readmission: Low Risk Care Management Discharge Reason for Hospitalization: Acute Appendicitis Discharge Plan: Gonzales is discharged home via private vehicle with family. New RX's are transmitted to [facility]. The [facility] will contact him Saturday morning to schedule a follow up appointment for . Gonzales needs a PCP. CM provided pt with a list of local PCP's, prior to discharge. Patient/Family Education Needs: Review discharge instructions, limitations, medications and plan to follow up with community providers. Discuss ask me three.
[2022-07-01] MEDS: Amoxicillin 875/Clav. 125 TAB PO (17:03)
== END 2022-07-01 18:36 | disposition home or self-care (01) | DRG 343 ==
LOC: ER 22:54 → MS 07-01 07:17
PROVIDERS: Admitting Provider Surgery; Emergency Provider Emergency Medicine; Visit Provider Surgery
PROC: 0DTJ4ZZ Resection of Appendix, Percutaneous Endoscopic Approach (ICD-10-PCS; CPT 44970; principal; 2022-07-01 09:00)
DX: K35.80 Unspecified acute appendicitis (principal); F17.210 Nicotine dependence, cigarettes, uncomplicated; F41.9 Anxiety disorder, unspecified; G47.00 Insomnia, unspecified; F90.9 Attention-deficit hyperactivity disorder, unspecified type
CPT/HCPCS: 44970; 36415; 74177; 80053; 83690; 85027; 87635; 93005; 96365; 96367; 96368; 96372; 96375; 99285; J1650; 71260; 83605; 84484; 85025; 88304; 93010; G0378; J0131; J1100; J1170; J1885; J2250; J2270; J2405; J2543; J2704; J3010; J3490

== ENCOUNTER 2024-10-02 13:39 | Emergency (ER) | payer OTHER, SELFPAY ==
[2024-10-02 13:41] VITALS: BP 150/96; PULSE 108; RESP 16; TEMP 36.6; O2SAT 97
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
[2024-10-02] MEDS: Ibuprofen 800 MG TAB PO (15:34)
[2024-10-02] MEDS: Lidocaine/Epinephri/Tetracaine Topical Gel 3 ML TP (15:34)
[2024-10-02] MEDS: Acetaminophen 500 MG TAB 1000 MG PO (15:34)
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
[2024-10-02] MEDS: Diph,Pertuss(Acell),Tet Vac/Pf 0.5 ML SYR IM (16:54)
[2024-10-02 16:55] VITALS: BP 134/77; PULSE 88; RESP 18; O2SAT 96
== END 2024-10-02 17:02 | disposition home or self-care (01) ==
PROVIDERS: Emergency Provider Student in an Organized Health Care Education/Training Program
DX: S01.511A Laceration without foreign body of lip, initial encounter (principal); R68.84 Jaw pain; Y09 Assault by unspecified means; W22.8XXA Striking against or struck by other objects, initial encounter; Z23 Encounter for immunization
CPT/HCPCS: 99283; 99285; 12011; 90471; 90715; 70450; 70486; 72125

== ENCOUNTER 2024-10-18 08:37 | Observation (INO) | payer OTHER, SELFPAY ==
[2024-10-18 08:56] VITALS: BP 135/95; PULSE 93; RESP 18; TEMP 36.8; O2SAT 97
--- NOTE | 2024-10-18 09:00 | DI.RAD_ITS ---
Exam(s) XR HAND RT COMPLETE XR FINGER RT INDEX EXAM: XR HAND RT COMPLETE CLINICAL HISTORY: Index finger cellulitis/R/O gas/ osteo. TECHNIQUE: 2D digital imaging was performed. Three views hand and index finger. COMPARISON: CR,XR XR FINGER RT INDEX from 10/18/2024 FINDINGS: BONES: No acute fracture is present. No bony destructive lesion is seen. JOINTS: No dislocation present. SOFT TISSUE: Marked soft tissue swelling proximally in the index finger. No foreign body or abnormal gas collection. IMPRESSION: Marked soft tissue swelling. No evidence of foreign body, gas collection or osteomyelitis. DATA REPOSITORY: RADIATION DOSE DELIVERED:
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
[2024-10-18 09:29] LABS: Abs Immature Grans 0.05 10^3/uL (0.0-0.06); HCT 40.8 % (40.0-50.0); HGB 14.2 g/dL (13.5-17.5); Immature Grans % 0.3 %; MCH 29.7 pg (27.0-33.0); MCHC 34.8 % (32.0-36.0); MCV 85 fL (80-95); MPV 9.9 fL (8.0-11.0); Platelet Count 264 10^3/uL (130-400); RBC 4.78 10^6/uL (4.36-5.78); RDW 12.1 % (11.8-14.1); RDW-SD 37.6 fL; WBC 16.17 10^3/uL (4.4-10.8)
[2024-10-18 09:31] LABS: ESR 29 mm/hr (0-15)
[2024-10-18 09:43] LABS: ALT 35 U/L (16-63); AST 16 U/L (15-37); Albumin 3.9 g/dL (3.4-5.0); Alkaline Phosphatase 137 U/L (46-116); Anion Gap 10.9 mmol/L (3-11); BUN 16 mg/dL (7-18); Bilirubin, Total 0.4 mg/dL (0.2-1.0); C-Reactive Protein 4.83 mg/dL (<or=0.5); CO2 26.1 mmol/L (21.0-32.0); Calcium 9.5 mg/dL (8.5-10.1); Chloride 102 mmol/L (98-107); Estimated GFR 88.67 (mL/min/1.73m2); Glucose 127 mg/dL (74-106); Magnesium 2.1 mg/dL (1.8-2.4); Potassium 4.0 mmol/L (3.5-5.1); Sodium 139 mmol/L (136-145); Total Protein 8.3 g/dL (6.4-8.2)
[2024-10-18] MEDS: ceFAZolin 1 GM/50 ML BAG IVPB (10:15)
[2024-10-18] MEDS: Lidocaine/Epinephri/Tetracaine Topical Gel 3 ML TP (10:16)
--- NOTE | 2024-10-18 10:19 | DI.VRAD_ITS ---
PROCEDURE INFORMATION: Exam: XR Right Hand Exam date and time: 10/18/2024 9:56 AM Age: 39 years old Clinical indication: Other: Index finger cellulitis/r/o gas/ osteo TECHNIQUE: Imaging protocol: Radiologic exam of the right hand. Views: 3 or more views. COMPARISON: CR XR FINGER RT INDEX 10/18/2024 9:57 AM FINDINGS: Bones/joints: No acute fracture or dislocation. No radiographic evidence of osteomyelitis. Soft tissues: Marked soft tissue swelling 2nd digit adjacent to the proximal and mid phalanges. No radiopaque foreign body or definite soft tissue gas. IMPRESSION: Marked soft tissue swelling 2nd digit adjacent to the proximal and mid phalanges. No radiopaque foreign body or definite soft tissue gas. Dictated and Authenticated by: Mari Avila MD. Orderin Natalie Duff MD
--- NOTE | 2024-10-18 10:19 | DI.VRAD_ITS ---
PROCEDURE INFORMATION: Exam: XR Right Finger(s) Exam date and time: 10/18/2024 9:57 AM Age: 39 years old Clinical indication: Other: Index finger cellulitis/r/o gas/ osteo TECHNIQUE: Imaging protocol: Radiologic exam of the right fingers. Views: Minimum 2 views. COMPARISON: CR XR HAND RT COMPLETE 10/18/2024 9:56 AM FINDINGS: Bones/joints: No acute fracture or dislocation. No radiographic evidence of osteomyelitis. Soft tissues: Marked soft tissue swelling 2nd digit adjacent to the proximal and middle phalanges. No radiopaque foreign body or definite soft tissue gas. IMPRESSION: Marked soft tissue swelling 2nd digit adjacent to the proximal and middle phalanges. No radiopaque foreign body or definite soft tissue gas. Dictated and Authenticated by: Mari Avila MD. Orderin Natalie Duff MD
[2024-10-18] MEDS: ACETAMINOPHEN 1,000 MG/100 ML BAG 400 MG IVPB ×2 (11:26→16:52)
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
[2024-10-18 13:03] VITALS: BP 135/100; PULSE 78; RESP 20; TEMP 37.1; O2SAT 99
[2024-10-18 13:38] VITALS: BP 135/100; PULSE 78; RESP 20; TEMP 37.1; O2SAT 99
[2024-10-18] MEDS: Normal Saline 1,000 ML 1000 ML IV (13:58)
[2024-10-18] MEDS: Ketorolac 15 MG/ML VIAL IVP ×2 (14:05→20:10)
--- NOTE | 2024-10-18 14:21 | W.WOUNDCONS ---
Date of service: 10/18/24 Time of Service: 14:21 Wound Initial Evaluation Narrative Narrative: NO eval, just pictures Photo Photo:
[2024-10-18] MEDS: DALBAVANCIN 1,500 MG in DEXTROSE 5%-WATER 325 ML 650 MG IVPB (15:18)
[2024-10-18] MEDS: Normal Saline Flush 10 ML SYR IVP ×2 (16:52→20:10)
--- NOTE | 2024-10-18 17:11 | W.PC.ACHO ---
Registration Status: ADM JOHANNE Primary Language: Preferred Language: ED Information & Data Chief Complaint Cellulitis 10/18/24 12:40 Chief Complaint Cellulitis 10/18/24 09:20 Triage Note approx 8days ago right first 10/18/24 08:56 finger burned, started abx saturday evening, swelling and pain to finger worse, weeping serosanguinous fluid , feels feverish and achy but did not know if had fever (Last Reviewed 10/18/24 @ 09:19 by Sherin Estrada NP) S/P laparoscopic appendectomy Most Recent Vital Signs Temperature 37.1 C 10/18/24 13:38 Temperature Source Temporal Artery Scan 10/18/24 13:03 Pulse 78 10/18/24 13:38 Respiratory Rate 20 10/18/24 13:38 Blood Pressure 135/100 H 10/18/24 13:38 Blood Pressure Mean 111 10/18/24 13:03 Pulse Oximetry 99 10/18/24 13:38 Oxygen Delivery Method Room Air 10/18/24 13:38 Oxygen Flow Rate 0 10/18/24 13:38 Pain Level 8 10/18/24 14:05 Comment Notifying RN 10/18/24 13:03 Allergies bee venom protein (honey bee) Allergy (Mild, Unverified 10/18/24 09:00) Swelling/Edema Precautions Isolation Standard precaution 10/18/24 12:40 Active Medications Generic Name Dose Route Start Last Admin Trade Name Freq PRN Reason Stop Dose Admin Acetaminophen 1,000 mg in 100 mls @ 400 mls/hr 10/18/24 16:00 10/18/24 16:52 Ofirmev IVPB 400 mls/hr Q8H PRN PRN Administration Ketorolac Tromethamine 15 mg 10/18/24 13:29 10/18/24 14:05 Ketorolac 15 Mg/Ml Vial IVP 10/23/24 13:28 15 mg Q6H PRN PRN Administration Pain Sodium Chloride 0 ml 10/18/24 09:10 10/18/24 16:52 Normal Saline Flush 10 Ml Syr IVP 10 ml PRN PRN Administration IV IV Catheter Type [Left Saline Lock Antecubital] IV Catheter Gauge [Left 18 Antecubital] Diet Orders Category Date Time Status Regular/Normal [DIET] Nutrition 10/18/24 Lunch Active Diagnostics 10/18/24 10/18/24 Range/Units 12:36 09:15 WBC 16.17 H (4.4-10.8) 10^3/uL RBC 4.78 (4.36-5.78) 10^6/uL Hgb 14.2 (13.5-17.5) g/dL Hct 40.8 (40.0-50.0) % MCV 85 (80-95) fL MCH 29.7 (27.0-33.0) pg MCHC 34.8 (32.0-36.0) % RDW 12.1 (11.8-14.1) % Plt Count 264 (130-400) 10^3/uL MPV 9.9 (8.0-11.0) fL Immature Gran % 0.3 % Neutrophils % 71.6 % Lymphocytes % 18.9 % Monocytes % 8.5 % Eosinophils % 0.3 % Basophils % 0.4 % Nucleated RBC % 0.0 (0.0-0.3) % Absolute Neutrophils 11.58 H (1.2-6.7) 10^3/uL Absolute Lymphocytes 3.06 (1.2-3.4) 10^3/uL Absolute Monocytes 1.37 H (0.1-0.8) 10^3/uL Absolute Eosinophils 0.05 (0.0-0.7) 10^3/uL Absolute Basophils 0.06 (0.0-0.2) 10^3/uL ESR 29 H (0-15) mm/hr VBG Lactate 1.1 (<or=2.0) mmol/L Sodium 139 (136-145) mmol/L Potassium 4.0 (3.5-5.1) mmol/L Chloride 102 (98-107) mmol/L Carbon Dioxide 26.1 (21.0-32.0) mmol/L Anion Gap 10.9 (3-11) mmol/L BUN 16 (7-18) mg/dL Creatinine 1.1 (0.70-1.30) mg/dL Est GFR (CKD-EPI 2020) 88.67 (mL/min/1.73m2) Glucose 127 H (74-106) mg/dL Calcium 9.5 (8.5-10.1) mg/dL Magnesium 2.1 (1.8-2.4) mg/dL Total Bilirubin 0.4 (0.2-1.0) mg/dL AST 16 (15-37) U/L ALT 35 (16-63) U/L Alkaline Phosphatase 137 H (46-116) U/L C-Reactive Protein 4.83 H (<or=0.5) mg/dL Total Protein 8.3 H (6.4-8.2) g/dL Albumin 3.9 (3.4-5.0) g/dL 10/18/24 09:37 Blood Culture - Pending Blood 10/18/24 09:35 Skin Culture - Pending Finger - Right First Digit 10/18/24 09:15 Blood Culture - Pending Blood Intake and Output - 24 Hour Total 10/18/24 08:37 thru 10/18/24 17:08 Intake Total 1865 Balance 1865 Weight 104.326 kg Intake: IV 1385 Oral 480 Other: Comment x1 Falls Risk Assessment History of Falls No History 10/18/24 13:38 Fall Total Score 0 10/18/24 13:38 Level of Risk Standard/Low Risk 10/18/24 13:38 Problems (Last Reviewed 10/18/24 @ 09:19 by Sheirn Estrada NP) Cellulitis of hand, right (Acute) Felon of finger of right hand (Acute) Cellulitis of right finger (Acute) Sepsis without septic shock (Acute) v v v v v v v v v Sending and/or Receiving Nurses: Please use comment section below to note any information pertinent to the patient hand-off not included above. Information / Comments: Report received from: Report received at 12:37 from CATHLEEN Carrillo. SBAR report, including medications administered in ED.
[2024-10-18 20:10] VITALS: BP 132/81; PULSE 79; RESP 20; TEMP 36.9; O2SAT 99
[2024-10-18] MEDS: Amitriptyline 50 MG TAB PO (20:10)
[2024-10-18 20:20] VITALS: BP 132/81; PULSE 79; RESP 20; TEMP 36.9; O2SAT 99
[2024-10-19] MEDS: ACETAMINOPHEN 1,000 MG/100 ML BAG 400 MG IVPB ×2 (00:17→08:32)
[2024-10-19] MEDS: Normal Saline Flush 10 ML SYR IVP ×2 (04:04→09:39)
[2024-10-19] MEDS: Ketorolac 15 MG/ML VIAL IVP ×2 (04:04→11:42)
[2024-10-19 05:59] LABS: Abs Immature Grans 0.03 10^3/uL (0.0-0.06); HCT 39.6 % (40.0-50.0); HGB 13.3 g/dL (13.5-17.5); Immature Grans % 0.3 %; MCH 29.1 pg (27.0-33.0); MCHC 33.6 % (32.0-36.0); MCV 87 fL (80-95); MPV 9.8 fL (8.0-11.0); Platelet Count 212 10^3/uL (130-400); RBC 4.57 10^6/uL (4.36-5.78); RDW 12.2 % (11.8-14.1); RDW-SD 38.6 fL; WBC 11.07 10^3/uL (4.4-10.8)
[2024-10-19 06:21] LABS: Anion Gap 9.7 mmol/L (3-11); BUN 16 mg/dL (7-18); CO2 25.3 mmol/L (21.0-32.0); Calcium 8.8 mg/dL (8.5-10.1); Chloride 103 mmol/L (98-107); Estimated GFR 88.67 (mL/min/1.73m2); Glucose 145 mg/dL (74-106); Potassium 4.3 mmol/L (3.5-5.1); Sodium 138 mmol/L (136-145)
[2024-10-19 07:46] VITALS: BP 132/84; PULSE 71; RESP 18; TEMP 36.8; O2SAT 98
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
[2024-10-19] MEDS: Ibuprofen 800 MG TAB PO (14:06)
--- NOTE | 2024-10-19 14:17 | CMDISCH_ITS ---
Date of service: 10/19/24 Time of Service: 14:17 LACE Index Scoring Tool Questions: Length of Stay (in days): 1 Was the patient admitted via the E.D.?: Yes E.D. Visits: 2 Answers: Total Score: 6 Risk of Readmission: Low Risk Care Management Discharge Plan Reason for Hospitalization: cellulitis Discharge Plan: Gonzales will return to [facility] accompanied by corrections staff later today. He will follow up with the facility provider and plan of care and [employer] via DOC vehicle. Patient/Family Education Needs: Review of discharge instructions, limitations, follow up plan, and discuss Ask Me Three
== END 2024-10-19 14:27 ==
LOC: ER 12:25 → MS 12:58
PROVIDERS: Nurse Practitioner Acute Care; Admitting Provider Family Medicine; Emergency Provider Registered Nurse Emergency; Responsible Provider Nurse Practitioner Family; Visit Provider Family Medicine
DX: A41.9 Sepsis, unspecified organism (principal); L02.511 Cutaneous abscess of right hand; L03.011 Cellulitis of right finger; T23.22 Burn of second degree of single finger (nail) except thumb; B95.62 Methicillin resistant Staphylococcus aureus infection as the cause of diseases classified elsewhere; X15.0XXS Contact with hot stove (kitchen), sequela; F41.9 Anxiety disorder, unspecified; G47.00 Insomnia, unspecified; F90.9 Attention-deficit hyperactivity disorder, unspecified type; F17.210 Nicotine dependence, cigarettes, uncomplicated
CPT/HCPCS: 00123; 10061; 36415; 80048; 80053; 85652; 87040; 87077; 96361; 96365; 96366; 96367; 96375; 96376; 99285; 73130; 73140; 83605; 83735; 85025; 86140; 87070; 87075; 87186; 99222; 99239; G0378; J0131; J0690; J0875; J1885